=== PATIENT | male | born 1990 | race American Indian/Alaskan Native ===

== ENCOUNTER 2020-05-05 16:08 | Emergency (ER) | payer OTHER ==
[2020-05-05 16:17] VITALS: BP 138/93
--- NOTE | 2020-05-05 17:04 | XRay Report ---
RIGHT FOOT 3 VIEW(S) INDICATION / CLINICAL INFORMATION: r toe injury at work. Redness and swelling. COMPARISON: None available. FINDINGS: BONES / JOINT(S): Mildly comminuted fracture of the tuft of distal phalanx of the great toe. No other fracture identified. No significant arthritis. SOFT TISSUES: Moderate soft tissue swelling of the great toe. ADDITIONAL FINDINGS: None. Signer Name: Ryder Jalloh MD Signed: 05/05/2020 5:00 PM Workstation Name: [id number]
--- NOTE | 2020-05-05 17:52 | Emergency Department Report ---
ED Extremity Problem HPI - General Chief complaint: Extremity Injury, Lower Stated complaint: RT GREAT TOE INJURY Time Seen by Provider: 05/05/20 17:46 Source: patient Mode of arrival: Ambulatory Limitations: No Limitations - History of Present Illness Initial comments: 30-year-old -[place] male states that he had injured his right toe a few weeks ago and noticed that he has been bumping it accidentally and yesterday he noticed that it was red and swelling and even more pain. Patient states that he had been seen back [facility] but there orthopedic clinic would not open back up until Friday. Patient states he has been taking his ibuprofen. He denies any fever chills no drainage from his toe. Does realize that he has an injured toenail. Patient states that he had broken his toe about 3 weeks ago and is still using a postop shoe or sometimes a flip-flop when he walks. MD Complaint: extremity pain, extremity swelling -: This morning Location: right, toe (great) History of Same: Yes -: Yes arthralgia Radiation: proximal Severity scale (0 -10): 10 Quality: stabbing, aching, sharp Consistency: constant Improves with: rest Worsens with: weight bearing, walking Associated Symptoms: denies other symptoms - Related Data Previous Rx's Medication Instructions Recorded Last Taken Type Clindamycin [Clindamycin CAP] 300 mg PO Q8H 10 Days #30 cap 05/05/20 Unknown Rx Allergies Allergy/AdvReac Type Severity Reaction Status Date / Time No Known Allergies Allergy Verified 05/05/20 16:16 ED Review of Systems ROS: Stated complaint: RT GREAT TOE INJURY Other details as noted in HPI Comment: All other systems reviewed and negative ED Past Medical Hx - Past Medical History Previous Medical History?: No - Surgical History Past Surgical History?: No - Social History Smoking Status: Never Smoker Substance Use Type: None - Medications Home Medications: Home Medications Medication Instructions Recorded Confirmed Last Taken Type Clindamycin [Clindamycin CAP] 300 mg PO Q8H 10 Days #30 cap 05/05/20 Unknown Rx ED Physical Exam - General Limitations: No Limitations, Other (Patient is in a postop shoe) General appearance: alert, in no apparent distress - Head Head exam: Present: atraumatic, normocephalic - Eye Eye exam: Present: normal appearance - Expanded Lower Extremity Exam Right Hip exam: Present: normal inspection Upper Leg exam: Present: normal inspection Knee exam: Present: normal inspection Foot/Toe exam: Present: full ROM, tenderness, swelling, erythema, nail avulsion (Partial) Neuro vascular tendon exam: Present: no vascular compromise ED Course Vital Signs 05/05/20 16:09 Temperature 98 F Pulse Rate 60 Respiratory 16 Rate Blood Pressure 138/93 O2 Sat by Pulse 96 Oximetry ED Medical Decision Making - Radiology Data Radiology results: report reviewed [facility] [address] [place] [address] XRay Report Signed Patient: POLO ANGEL MR#: [id number] : 1990 Acct:[id number] Age/Sex: 30 / M ADM Date: 05/05/20 Loc: ED Attending Dr: Ordering Physician: YAN BA MD Date of Service: 05/05/20 Procedure(s): XR foot 3+V RT Accession Number(s): [id number] cc: ED MD JESENIA Fluoro Time In Minutes: RIGHT FOOT 3 VIEW(S) INDICATION / CLINICAL INFORMATION: r toe injury at work. Redness and swelling. COMPARISON: None available. FINDINGS: BONES / JOINT(S): Mildly comminuted fracture of the tuft of distal phalanx of the great toe. No other fracture identified. No significant arthritis. SOFT TISSUES: Moderate soft tissue swelling of the great toe. ADDITIONAL FINDINGS: None. Signer Name: Ryder Jalloh MD Signed: 05/05/2020 5:00 PM Workstation Name: [id number] Transcribed By: DT Dictated By: Stephan Jalloh MD Electronically Authenticated By: Stephan Jalloh MD Signed Date/Time: 05/05/201699 DD/ 58 TD/TT: - Medical Decision Making 30-year-old -[place] male states that he had injured his right toe a few weeks ago and noticed that he has been bumping it accidentally and yesterday he noticed that it was red and swelling and even more pain. Patient states that he had been seen back [facility] but there orthopedic clinic would not open back up until Friday. Patient states he has been taking his ibuprofen. He denies any fever chills no drainage from his toe. Does realize that he has an injured toenail. Patient appears to have redness and erythematous around the nail bed with swelling at the proximal joint. We will treat patient for a cellulitis with clindamycin encouraged to continue with the ibuprofen follow-up with an orthopedic or studio assistant for possible removal of nail. Critical care attestation.: If time is entered above; I have spent that time in minutes in the direct care of this critically ill patient, excluding procedure time. ED Disposition Clinical Impression: Cellulitis of toe of right foot Disposition: - TO HOME OR SELFCARE Is pt being admited?: No Does the pt Need Aspirin: No Condition: Stable Instructions: Cellulitis (ED) Additional Instructions: Complete antibiotics as prescribed. Warm Epson salt soaks with Betadine. Continue with your ibuprofen or Tylenol for pain management. Follow-up with a studio assistant or orthopedic provider. Prescriptions: Clindamycin [Clindamycin CAP] 300 mg PO Q8H 10 Days #30 cap Referrals: [facility] [Provider Group] - 3-5 Days Forms: Work/School Release Form(ED)
== END 2020-05-05 18:51 | disposition home or self-care (01) ==
LOC: ED 16:08
DX: L03.031 Cellulitis of right toe (principal); Z79.899 Other long term (current) drug therapy